=== PATIENT | female | born 1940 | race African-American/Black ===

== ENCOUNTER 2022-02-06 10:11 | Observation (INO) ==
[2022-02-06 13:08] LABS: Basophils % 0.3 % (0.0-0.8); Eosinophils % 0.3 % (0.00-10.9); Hematocrit 34.8 VOL% (35.7-47.0); Hemoglobin 10.6 GM/DL (12.0-16.0); Immature Granulocytes % 0.5 %; Immature Granulocytes Absolute 0.03 #; Lymphocytes # 0.5 10*3/uL (1.4-4.0); Lymphocytes % 7.6 % (21.3-54.2); Mean Corpuscular HGB Conc 30.5 GM/DL (32-36); Mean Corpuscular Volume 94.3 FL (87-102); Mean Platelet Volume 9.7 FL (9.6-12.0); Monocytes % 6.9 % (1.7-12.7); Neutrophils % 84.4 % (38.7-73.9); Platelet Count 229 T/CUMM (130-400); Red Blood Count 3.69 MC/CUMM (3.8-5.5); Red Cell Distribution Width 15.3 % (9.3-17.3); White Blood Count 6.4 T/CUMM (4-12)
[2022-02-06 13:29] LABS: Calcium 8.8 MG/DL (8.5-10.1); Osmolality,Calculated 284.4 MOS/KG (273-304); Potassium 4.7 MMOL/L (3.5-5.1)
[2022-02-06] MEDS ORDERED: ACETAMINOPHEN 325 MG TABLET PO PRN (14:14)
[2022-02-06] MEDS ORDERED: DOCUSATE SODIUM 100 MG CAPSULE PO PRN (14:14)
[2022-02-06] MEDS ORDERED: GLUCAGON 1 MG VIAL IM PRN (14:14)
[2022-02-06] MEDS ORDERED: ONDANSETRON 4 MG/2 ML VIAL IV PRN (14:14)
[2022-02-06] MEDS ORDERED: ALBUTEROL 0.63 MG/3 ML NEB RESP TX PRN (14:23)
[2022-02-06] MEDS ORDERED: DEXTROSE 10% 250 ML BAG IV PRN (14:29)
[2022-02-06] MEDS ORDERED: SODIUM CHLORIDE 0.9% 1,000 ML IV SCH (14:30)
[2022-02-06] MEDS ORDERED: ALBUTEROL 2.5 MG/3 ML NEB RESP TX PRN (14:59)
[2022-02-06] MEDS: INSULIN LISPRO 100 UNIT/ML SUBCUT SCH ×2 (18:24→22:43)
[2022-02-06] MEDS: carvediloL 12.5 MG TABLET PO SCH (18:28)
[2022-02-06] MEDS: APIXABAN 2.5 MG TABLET PO SCH (22:10)
[2022-02-07 06:00] LABS: Calcium 9.1 MG/DL (8.5-10.1); Osmolality,Calculated 282.5 MOS/KG (273-304); Potassium 4.9 MMOL/L (3.5-5.1)
[2022-02-07] MEDS ORDERED: amLODIPine 5 MG TABLET PO SCH (09:00)
[2022-02-07] MEDS: INSULIN LISPRO 100 UNIT/ML SUBCUT SCH ×4 (09:02→20:30)
[2022-02-07] MEDS: NON-FORMULARY MEDICATION (Fluticasone Furoate-Vilanterol [Breo Ellipta] 100-25 mcg/dose Bl INH SCH (09:02)
[2022-02-07] MEDS: SERTRALINE 50 MG TABLET PO SCH (10:35)
[2022-02-07] MEDS: PANTOPRAZOLE 40 MG TABLET PO SCH (10:35)
[2022-02-07] MEDS: APIXABAN 2.5 MG TABLET PO SCH ×2 (10:35→20:30)
[2022-02-07] MEDS: carvediloL 12.5 MG TABLET PO SCH (10:45)
[2022-02-07] MEDS: SODIUM CHLORIDE 0.9% 1,000 ML IV SCH (12:25)
[2022-02-08 05:02] LABS: Basophils % 0.2 % (0.0-0.8); Eosinophils # 0.1 10*3/uL (0.0-0.87); Eosinophils % 1.6 % (0.00-10.9); Hematocrit 29.8 VOL% (35.7-47.0); Hemoglobin 9.1 GM/DL (12.0-16.0); Immature Granulocytes % 0.2 %; Immature Granulocytes Absolute 0.01 #; Lymphocytes # 1.2 10*3/uL (1.4-4.0); Lymphocytes % 27.1 % (21.3-54.2); Mean Corpuscular HGB Conc 30.5 GM/DL (32-36); Mean Corpuscular Volume 94.6 FL (87-102); Monocytes % 14.6 % (1.7-12.7); Neutrophils % 56.3 % (38.7-73.9); Platelet Count 199 T/CUMM (130-400); Red Blood Count 3.15 MC/CUMM (3.8-5.5); Red Cell Distribution Width 15.2 % (9.3-17.3); White Blood Count 4.3 T/CUMM (4-12)
[2022-02-08 05:14] LABS: Calcium 8.9 MG/DL (8.5-10.1); Osmolality,Calculated 283.4 MOS/KG (273-304); Potassium 4.6 MMOL/L (3.5-5.1)
[2022-02-08] MEDS ORDERED: MAGNESIUM SULF RIDER 2 GM/50 ML PREMIX IV ONE (07:19)
[2022-02-08 08:54] VITALS: BP 150/58
[2022-02-08] MEDS: INSULIN LISPRO 100 UNIT/ML SUBCUT SCH (09:03)
[2022-02-08] MEDS: PANTOPRAZOLE 40 MG TABLET PO SCH (09:03)
[2022-02-08] MEDS: SERTRALINE 50 MG TABLET PO SCH (09:04)
[2022-02-08] MEDS: NON-FORMULARY MEDICATION (Fluticasone Furoate-Vilanterol [Breo Ellipta] 100-25 mcg/dose Bl INH SCH (09:04)
[2022-02-08] MEDS: APIXABAN 2.5 MG TABLET PO SCH (09:04)
[2022-02-08] MEDS: SODIUM CHLORIDE 0.9% 1,000 ML IV SCH (09:25)
== END 2022-02-08 12:08 | disposition home or self-care (01) ==
LOC: SUATTDRO → N.ED 10:11 → N.EDINP 10:11 → N.TELEN 18:43
PROVIDERS: ADMIT Internal Medicine; ATTEND Internal Medicine